=== PATIENT | male | born 1985 | race Caucasian/White ===

== ENCOUNTER 2017-06-03 17:02 | Emergency (ER) | payer OTHER ==
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
[2017-06-03] MEDS ORDERED: KETOROLAC TROMETHAMINE 30 MG/1 ML VIAL IM ONE (17:26)
[2017-06-03 17:58] VITALS: BP 122/74; PULSE 70; TEMP 98.2; BMI 27.3
[2017-06-03] MEDS ORDERED: KETOROLAC TROMETHAMINE 30 MG/1 ML VIAL ONE (17:59)
== END 2017-06-03 19:18 | disposition home or self-care (01) ==
LOC: FER 17:02
PROC: 3E0233Z Introduction of Anti-inflammatory into Muscle, Percutaneous Approach (ICD-10-PCS; principal; 2017-06-03)
DX: R07.89 Other chest pain (principal); M25.551 Pain in right hip; V43.52XA Car driver injured in collision with other type car in traffic accident, initial encounter; Y93.89 Activity, other specified; Y92.412 Parkway as the place of occurrence of the external cause; F17.210 Nicotine dependence, cigarettes, uncomplicated
CPT/HCPCS: 71046-TC; 72100-TC; 73523-TC; 99281-25

== ENCOUNTER 2017-12-29 17:33 | Emergency (ER) | payer OTHER ==
[2017-12-29 17:46] VITALS: BP 130/80; PULSE 84; TEMP 98.6; BMI 28.1
--- NOTE | 2017-12-29 17:58 | PDOC ---
History of Present Illness - General Chief Complaint: Pain Stated Complaint: RIGHT TESTICLE PAIN Time Seen by Provider: 12/29/17 17:45 History Source: Patient Exam Limitations: No Limitations - History of Present Illness Initial Comments: 12/29/17 18:00 32 year old male with no PMH presents for right testicle pain since 1600 yesterday. He states it is swollen, tender and "riding high". He denies fever, chills, nausea, vomiting, abdominal pain, dysuria, penile discharge. PCP - Dr. Holden Allergies - NKDA Past History - Past Medical History Allergies/Adverse Reactions: Allergies Allergy/AdvReac Type Severity Reaction Status Date / Time peach [[place]] Allergy Intermediate Swelling Verified 12/29/17 17:40 plum [[place]] Allergy Intermediate Swelling Verified 12/29/17 17:40 Home Medications: Ambulatory Orders No Home Medications 0 dose .ROUTE UTDICT 08/26/13 COPD: No - Immunization History Immunization Up to Date: No - Suicide/Smoking/Psychosocial Hx Smoking Status: Yes Smoking History: Current every day smoker Have you smoked in the past 12 months: Yes Number of Cigarettes Smoked Daily: 20 Information on smoking cessation initiated: Yes 'Breaking Loose' booklet given: 06/21/14 Hx Alcohol Use: No Drug/Substance Use Hx: No Substance Use Type: Alcohol Review of Systems - Review of Systems Able to Perform ROS?: Yes Comments:: 12/29/17 18:03 General: denies fever, chills, night sweats, generalized weakness. HEENT: denies sore throat, rhinorrhea, ear pain. Heart: denies chest pain, palpitations, syncope, lower extremity swelling. Respiratory: denies shortness of breath, cough, sputum production, hematemesis. Abdomen: denies abdominal pain, nausea, vomiting, diarrhea, constipation, blood in stool. : admits to right testicle pain and swelling. denies dysuria, urinary frequency, hematuria, urinary incontinence. Back: denies back pain, flank pain. Musculoskeletal: denies joint pain, muscle pain, joint swelling. Neurological: denies headache, dizziness, numbness, tingling, weakness. Skin: denies rash, laceration, abrasion. *Physical Exam - Vital Signs Last Vital Signs Temp Pulse Resp BP Pulse Ox 98.6 F 84 15 130/80 97 12/29/17 17:39 07/30/18 17:39 12/29/17 17:39 12/29/17 17:39 12/29/17 17:39 - Physical Exam Comments: 12/29/17 18:04 Appearance: comfortable. HEENT: head is normocephalic, atraumatic. EOMI. PERRLA. Neck: supple. Full ROM. Heart: regular rhythm. no murmurs, rubs or gallops. Lungs: clear to auscultation bilaterally. no crackles, rhonchi or wheezing. no stridor. Abdomen: soft, nontender. normal bowel sounds. no rebound, guarding, masses. : right testicle: high riding, transverse lie, elevated, tender to palpation. left testicle normal. Back: no CVA tenderness. Extremities: Peripheral pulses intact. No lower extremity edema. Neurological: Alert. Oriented x3. CN 2-12 grossly intact. Moves all four extremities ED Treatment Course - LABORATORY CBC & Chemistry Diagram: 12/29/17 18:13 12/29/17 18:13 Medical Decision Making - Medical Decision Making 12/29/17 18:05 32 year old male with no PMH presents for right testicle pain since 1600 yesterday. Right testicle is elevated, in horizontal lie, and tender to palpation. Highly concerned for testicular torsion. Urology paged. Pending scrotal US, CBC, CMP, type and screen, coags. 12/29/17 18:50 Morphine 4 mg given for pain. Manual de-torsion of right testicle attempted, 360 twist performed. Right testicle lying vertically. 12/29/17 18:58 CBC, CMP, coags normal. I discussed the case with Dr. Beal, who will take over care for the patient. *DC/Admit/Observation/Transfer Diagnosis at time of Disposition: Testicular pain, Hydrocele, Epididymal cyst - Discharge Dispostion Disposition: HOME Condition at time of disposition: Good - Referrals Referrals: Asher Rogel MD [Staff Physician] - Adriano Holden [Primary Care Provider] - - Patient Instructions Printed Discharge Instructions: DI for Testicular Pain, Testicular Torsion Additional Instructions: Call Dr. Rogel's office to set up follow up with a urologist this week for further evaluation of your testicular pain. You may have had a mild case of testicular torsion, which can cause loss of your testicle if untreated. Testicular torsion occurs when the testicle twists on itself, potentially compromising the blood supply. Your ultrasound today did not show an signs of testicular torsion. If you experience worsening pain, swelling of the testicle, or any other concerning symptoms, return to the ER immediately. If you develop testicular torsion, the longer you wait, the more likely you will lose your testicle. - Post Discharge Activity Forms/Work/School Notes: Back to Work
--- NOTE | 2017-12-29 18:21 | PDOC ---
Attending Attestation - Resident Resident Name: Shania Gonzalez - ED Attending Attestation I have performed the following: I have examined & evaluated the patient, The case was reviewed & discussed with the resident, I agree w/resident's findings & plan, Exceptions are as noted - HPI HPI: 12/29/17 18:07 32 year old male with no past medical history presents with R testicular pain. Pt was golfing. She was out on the golf course and swinging the golf club multiple times yesterday. Afterwards, he had sat down and noticed that his right testicle was riding high and had tenderness. No dysuria, no hematuria. No abdominal pain. This occurred at approx 4 pm yesterday. Came into the ED. - Physicial Exam PE: 12/29/17 18:22 GENERAL: Awake, alert, and fully oriented, in no acute distress HEAD: No signs of trauma EYES: EOMI, sclera anicteric, conjunctiva clear ENT: Auricles normal inspection, hearing grossly normal, nares patent, Moist mucosa NECK: Normal ROM, supple ABDOMEN: Soft, nontender, No guarding, no rebound. No masses. : Circumcised penis. No drainage, erythema, rash. High riding right testicle with mild tenderness. In horizontal lie. No swelling appreciated. Unable to elicit a cremasteric reflex. EXTREMITIES: Normal range of motion, no edema. No clubbing or cyanosis. No cords, erythema, or tenderness NEUROLOGICAL: Cranial nerves II through XII grossly intact. Normal speech, normal gait SKIN: Warm, Dry, normal turgor, no rashes or lesions noted. - Medical Decision Making 12/29/17 18:29 Vital Signs Temp Pulse Resp BP Pulse Ox 98.6 F 84 15 130/80 97 12/29/17 17:39 12/29/17 17:39 12/29/17 17:39 12/29/17 17:39 12/29/17 17:39 Testicular pain since yesterday at 4 pm. Differential includes testicular torsion, orchitis, epidymitis The patient overall looks comfortable, but will need stat scrotal ultrasound A manual detorsion by me and Dr. Gonzalez (resident) and a 360 degree external rotation of the testicle was successfully performed. The overall apperance of the testicle appears to be improved after the maneuver. [facility] Urology was consulted. Dr. Rogel paged and awaiting phone call back. 12/29/17 18:50 Pt signed out to Dr. Beal for further management and disposition.
[2017-12-29 18:30] LABS: BASO % 1.2 % (0-2.0); EOS % 4.3 % (0-4.5); HEMATOCRIT 46.5 % (35.4-49); HEMOGLOBIN 15.9 GM/dl (11.7-16.9); LYMPH % 21.6 % (8-40); MCH 30.9 pg (25.7-33.7); MCHC 34.2 g/dl (32.0-35.9); MEAN CELL VOLUME 90.4 fl (80-96); MEAN PLT VOLUME 7.9 fl (7.5-11.1); MONO % 5.4 % (3.8-10.2); NEUT % 67.5 % (42.8-82.8); PLATELET COUNT 280 K/MM3 (134-434); RBC 5.15 M/mm3 (4.00-5.60); RDW 12.2 % (11.9-15.9); WHITE BLOOD COUNT 10.4 K/mm3 (4.0-10.8)
[2017-12-29] MEDS ORDERED: morphine CARPU-JECT 4 MG/1 ML DISP.SYRIN IVPUSH ONE (18:34)
[2017-12-29] MEDS ORDERED: morphine SULFATE 4 MG/ML VIAL ONE (18:37)
[2017-12-29 18:39] LABS: ALBUMIN 4.4 g/dl (3.5-5.0); ALK PHOS 43 U/L (32-92); ANION GAP 7 (8-16); BILIRUBIN,TOTAL 0.3 mg/dl (0.2-1.0); BLOOD UREA NITROGEN 14 mg/dl (7-18); CALCIUM 9.2 mg/dl (8.4-10.2); CHLORIDE 102 mmol/L (98-107); CO2 24 mmol/L (22-28); CREATININE 1.2 mg/dl (0.6-1.3); GLUCOSE,RANDOM 129 mg/dl (74-106); POTASSIUM 3.4 mmol/L (3.5-5.1); SGOT/AST 24 U/L (10-42); SGPT/ALT 25 U/L (10-40); SODIUM 133 mmol/L (136-145); TOT PROT 7.2 g/dl (6.4-8.3)
[2017-12-29 18:51] LABS: ACTIVATED PTT 33.2 SECONDS (25.2-36.5)
[2017-12-29 19:00] LABS: INR 1.01 (0.82-1.09); PROTHROMBIN TIME (PATIENT) 11.3 SEC (10.2-13.0)
[2017-12-29 19:14] LABS: URINE APPEARANCE Clear; URINE BILIRUBIN Negative (NEGATIVE); URINE COLOR Yellow; URINE GLUCOSE (UA) Negative (NEGATIVE); URINE KETONE Negative (NEGATIVE); URINE LEUK ESTERASE Negative (NEGATIVE); URINE NITRITE Negative (NEGATIVE); URINE PROTEIN Negative (NEGATIVE); URINE UROBILINOGEN 0.2 (0.2-1.0)
--- NOTE | 2017-12-29 20:45 | PDOC ---
*Physical Exam - Vital Signs Last Vital Signs Temp Pulse Resp BP Pulse Ox 98.6 F 84 15 130/80 97 12/29/17 17:39 12/29/17 17:39 12/29/17 17:39 12/29/17 17:39 12/29/17 17:39 ED Treatment Course - LABORATORY CBC & Chemistry Diagram: 12/29/17 18:13 12/29/17 18:13 - ADDITIONAL ORDERS Additional order review: Laboratory Results 12/29/17 12/29/17 12/29/17 18:44 18:13 18:13 PT with INR INR PTT (Actin FS) Sodium 133 L Potassium 3.4 L Chloride 102 Carbon Dioxide 24 Anion Gap 7 L BUN 14 Creatinine 1.2 Creat Clearance w eGFR > 60 Random Glucose 129 H Calcium 9.2 Total Bilirubin 0.3 AST 24 ALT 25 Alkaline Phosphatase 43 Total Protein 7.2 Albumin 4.4 Urine Color Yellow Urine Appearance Clear Urine pH 5.0 Ur Specific [place] >= 1.030 H Urine Protein Negative Urine Glucose (UA) Negative Urine Ketones Negative Urine Blood Negative Urine Nitrite Negative Urine Bilirubin Negative Urine Urobilinogen 0.2 Ur Leukocyte Esterase Negative Blood Type O POSITIVE Antibody Screen Negative 12/29/17 18:13 PT with INR 11.3 INR 1.01 PTT (Actin FS) 33.2 Sodium Potassium Chloride Carbon Dioxide Anion Gap BUN Creatinine Creat Clearance w eGFR Random Glucose Calcium Total Bilirubin AST ALT Alkaline Phosphatase Total Protein Albumin Urine Color Urine Appearance Urine pH Ur Specific [place] Urine Protein Urine Glucose (UA) Urine Ketones Urine Blood Urine Nitrite Urine Bilirubin Urine Urobilinogen Ur Leukocyte Esterase Blood Type Antibody Screen 12/29/17 18:13 RBC 5.15 MCV 90.4 MCHC 34.2 RDW 12.2 MPV 7.9 Neutrophils % 67.5 Lymphocytes % 21.6 Monocytes % 5.4 Eosinophils % 4.3 Basophils % 1.2 - Medications Given in the ED: ED Medications Discontinued Medications Generic Name Dose Route Start Last Admin Trade Name Freq PRN Reason Stop Dose Admin Morphine Sulfate 4 mg 12/29/17 18:34 12/29/17 18:43 Morphine Injection - IVPUSH 12/29/17 18:35 4 mg ONCE ONE Administration Medical Decision Making - Medical Decision Making 12/29/17 20:40 Sign out taken from Dr. Dukes at 7PM. 32 M with right testicular pain. Exam initially concerning for torsion, now s/p manual detorsion in ED. - US shows no evidence of testicular torsion - Pt reassessed - now feels much better Pt is well appearing, with normal vitals. Clinically stable for DC at this time. I discussed the physical exam findings, ancillary test results and final diagnoses with the patient. I answered all of the patient's questions. The patient was satisfied with the care received and felt comfortable with the discharge plan and treatment plan. The patient agrees to follow up with the primary care physician within 24-72 hours. *DC/Admit/Observation/Transfer Diagnosis at time of Disposition: Testicular pain, Hydrocele, Epididymal cyst - Discharge Dispostion Disposition: HOME Condition at time of disposition: Good - Referrals Referrals: Adriano Holden [Primary Care Provider] - Asher Rogel MD [Staff Physician] - - Patient Instructions Printed Discharge Instructions: DI for Testicular Pain, Testicular Torsion Additional Instructions: Call Dr. Rogel's office to set up follow up with a urologist this week for further evaluation of your testicular pain. You may have had a mild case of testicular torsion, which can cause loss of your testicle if untreated. Testicular torsion occurs when the testicle twists on itself, potentially compromising the blood supply. Your ultrasound today did not show an signs of testicular torsion. If you experience worsening pain, swelling of the testicle, or any other concerning symptoms, return to the ER immediately. If you develop testicular torsion, the longer you wait, the more likely you will lose your testicle. - Post Discharge Activity Forms/Work/School Notes: Back to Work - Attestations Physician Attestion: 12/29/17 20:50 I, Dr. Cameron Beal MD, attest that this document has been prepared under my direction and personally reviewed by me in its entirety. I further attest, that it accurately reflects all work, treatment, procedures and medical decision -making performed by me.
== END 2017-12-29 20:57 | disposition home or self-care (01) ==
LOC: FER 17:33
PROC: 3E033NZ Introduction of Analgesics, Hypnotics, Sedatives into Peripheral Vein, Percutaneous Approach (ICD-10-PCS; principal; 2017-12-29)
DX: N50.811 Right testicular pain (principal); N50.3 Cyst of epididymis; N43.3 Hydrocele, unspecified
CPT/HCPCS: 36415; 76870-TC; 80053; 81003; 85025; 85610; 85730; 86850; 86900; 86901; 99281-25

== ENCOUNTER 2021-07-18 12:54 | Emergency (ER) | payer BC, OTHER ==
[2021-07-18 13:04] VITALS: BP 135/88; PULSE 83; TEMP 98; BMI 29.9
== END 2021-07-18 14:06 | disposition home or self-care (01) ==
LOC: FER 12:54
DX: S93.401A Sprain of unspecified ligament of right ankle, initial encounter (principal); X50.0XXA Overexertion from strenuous movement or load, initial encounter; Y93.67 Activity, basketball
CPT/HCPCS: 73610-TC-RT-FY; 99283-25